=== PATIENT | female | born 1980 | race Caucasian/White ===

== ENCOUNTER 2017-07-12 09:33 | Outpatient (RCR) | payer BC, SELFPAY | END 2017-07-12 23:59 | LOC: NS 09:33 | PROVIDERS: Family Provider Family Medicine; PCP Family Medicine; Visit Provider Family Medicine | DX: Z68.41 Body mass index [BMI] 40.0-44.9, adult (principal) | CPT/HCPCS: 97802 ==

== ENCOUNTER 2017-07-31 13:57 | Outpatient (RCR) | payer BC, SELFPAY | END 2017-07-31 13:58 | LOC: NS 13:57 | PROVIDERS: Family Provider Family Medicine; PCP Family Medicine; Visit Provider Family Medicine | DX: Z68.41 Body mass index [BMI] 40.0-44.9, adult (principal) | CPT/HCPCS: 97803 ==